=== PATIENT | male | born 1930 | race Caucasian/White ===

== ENCOUNTER 2020-04-12 07:33 | Outpatient (CLI) | payer MEDICARE ==
[2020-04-12 11:16] LABS: CREATININE,URINE 103.3 mg/dL; MICROALBUM/CREATININE RATIO,UR 9.7 ug/mg (<30.0)
[2020-04-12 13:06] LABS: BUN - BLOOD UREA NITROGEN 21 mg/dL (6-20); CALCIUM 9.1 mg/dL (8.5-10.3); CARBON DIOXIDE - CO2 26 mmol/L (21-32); CHLORIDE 104 mmol/L (101-111); CHOL/HDL RATIO 2.4 (<5.0); CHOLESTEROL 152 mg/dL; CRP - C-REACTIVE PROTEIN < 1.0 mg/dL (0-1.0); GLUCOSE 110 mg/dL (70-100); HDL CHOLESTEROL 64 mg/dL; LDL CHOLESTEROL,CALCULATED 71 mg/dL; LDL/HDL RATIO 1.1 (<3.6); SODIUM 137 mmol/L (135-145); VLDL CHOLESTEROL 17 mg/dL
[2020-04-12 13:16] LABS: HB2 TOTAL 12.5 g/dL; HEMOGLOBIN A1C 0.58 g/dL; HEMOGLOBIN A1C % 6.4 % (4.6-6.2)
== END 2020-04-12 23:59 | disposition home or self-care (01) ==
LOC: LAB.WCP 07:33
PROVIDERS: ATTEND Family Medicine
DX: E11.9 Type 2 diabetes mellitus without complications (principal); E78.5 Hyperlipidemia, unspecified; M53.3 Sacrococcygeal disorders, not elsewhere classified
CPT/HCPCS: 36415; 80048; 80061; 82043; 82570; 83036; 83721; 85651; 86140

== ENCOUNTER 2020-04-14 12:06 | Outpatient (CLI) | payer MEDICARE ==
--- NOTE | 2020-04-15 06:54 | XRAY Report ---
Reason: BACK PAIN WITH RADICULOPATHY Procedure Date: 04/14/2020 Accession Number: [id number] / [id number] Procedure: WCP - Lumbar Spine Complete CPT Code: Final Report FULL RESULT: EXAM: LUMBOSACRAL SPINE RADIOGRAPHY EXAM DATE: 04/14/2020 01:09 PM. CLINICAL HISTORY: BACK PAIN WITH RADICULOPATHY. COMPARISONS: None. TECHNIQUE: AP, lateral, bilateral oblique views. FINDINGS: Alignment: There is mild right convexity lumbar scoliosis. There is a grade 1 ( approximately 20%) anterolisthesis at L5-S1. Alignment is otherwise maintained. Bones: Five [id number]-[id number] lumbar vertebral bodies are presumed. The first sacral segment is transitional in appearance demonstrating a prominent left-sided transverse process which forms a pseudoarthrosis with the left sacral ala. This transitional segment is designated S1 for counting purposes. Visualized osseous structures are osteopenic suggesting underlying osteoporosis. No fractures or bone lesions are identified. Disks: There is aoag-uq-iibpxute disk narrowing at all lumbar levels. This is most pronounced at L5-S1. Facets: There is multilevel bilateral facet hypertrophy. This is most prominent at L4-L5 and L5-S1. Sacroiliac Joints: Unremarkable. Soft Tissues: Bowel gas pattern is unremarkable. Atherosclerotic calcification is noted in the abdominal aorta. Tip of cardiac pacemaker device is partially visualized. IMPRESSION: 1. 5 nonrib-bearing lumbar type are assumed. The first sacral segment is transitional in appearance appearing partially lumbarized. 2. There is no obvious osseous acute abnormality. No evidence of lumbar spine fracture or acute subluxation. 3. Generalized osteopenia suggesting osteoporosis. 4. Moderate multilevel degenerative change. 5. Grade 1 degenerative anterolisthesis is present at L5-S1. 6. Mild right convexity lumbar scoliosis. RADIA
== END 2020-04-14 23:59 | disposition home or self-care (01) ==
LOC: DI.WCP 12:06
PROVIDERS: ATTEND Family Medicine
DX: M47.816 Spondylosis without myelopathy or radiculopathy, lumbar region (principal); M47.817 Spondylosis without myelopathy or radiculopathy, lumbosacral region; M43.17 Spondylolisthesis, lumbosacral region; M51.36 Other intervertebral disc degeneration, lumbar region; M51.37 Other intervertebral disc degeneration, lumbosacral region; M41.9 Scoliosis, unspecified; M85.88 Other specified disorders of bone density and structure, other site
CPT/HCPCS: 72110

== ENCOUNTER 2020-05-17 09:45 | Outpatient (CLI) | payer MEDICARE, OTHER ==
--- NOTE | 2020-05-17 14:50 | DEXA Report ---
Reason: OSTEOPOROSIS Procedure Date: 05/17/2020 Accession Number: [id number] / [id number] Procedure: DEX - Dexa Spine and/or Hip CPT Code: Final Report FULL RESULT: PROCEDURE: Dexa Spine and/or Hip INDICATIONS: OSTEOPOROSIS TECHNIQUE: Dual energy x-ray absorptiometry (DXA) was performed on a [email or web address] System. Regions measured are the AP Spine, femoral neck, and if needed forearm. COMPARISON: None. FINDINGS: Lumbar Spine: Bone Mineral Density 1.390 g/cm/cm,T score 1.4, Left Femoral Neck: Bone Mineral Density 1.011 g/cm/cm, T score -0.6, (T score greater or equal to -1.0: NORMAL) (T score from -1.1 to -2.4: OSTEOPENIA) (T score less than or equal to -2.5 to: OSTEOPOROSIS) Impression: Normal Patients with diagnosis of osteoporosis or osteopenia should have regular bone mineral density assessment. For those eligible for Medicare, routine testing is allowed once every 2 years. Testing frequency can be increased for patients who have rapidly progressing disease or for those who are receiving medical therapy to restore bone mass. Reviewed by: Alec Willingham MD on 05/17/2020 2:49 PM PDT Approved by: Alec Willingham MD on 05/17/2020 2:49 PM PDT Station ID: [id number]
== END 2020-05-17 09:46 | disposition home or self-care (01) ==
LOC: DI 09:45
PROVIDERS: ATTEND Family Medicine
DX: M81.0 Age-related osteoporosis without current pathological fracture (principal)
CPT/HCPCS: 77080

== ENCOUNTER 2020-09-01 07:05 | Outpatient (CLI) | payer BC, MEDICARE, OTHER ==
[2020-09-01 11:49] LABS: BASOPHILS % (AUTO) 0.8 %; EOSINOPHILS # (AUTO) 0.2 10^3/uL (0.0-0.7); EOSINOPHILS % (AUTO) 2.9 %; HGB - HEMOGLOBIN 11.9 g/dL (14.0-18.0); LYMPHOCYTES # (AUTO) 1.1 10^3/uL (1.5-3.5); LYMPHOCYTES % (AUTO) 21.9 %; MEAN CORPUSCULAR HEMOGLOBIN 29.5 pg (27.0-31.0); MEAN CORPUSCULAR HGB CONC 32.2 g/dL (32.0-36.0); MEAN CORPUSCULAR VOLUME 91.8 fL (80.0-94.0); MONOCYTES # (AUTO) 0.4 10^3/uL (0.0-1.0); MONOCYTES % (AUTO) 8.1 %; NEUTROPHILS # (AUTO) 3.4 10^3/uL (1.5-6.6); NEUTROPHILS % (AUTO) 65.7 %; PLT - PLATELET COUNT 240 10^3/uL (130-450); RED BLOOD COUNT 4.03 10^6/uL (4.70-6.10); RED CELL DISTRIBUTION WIDTH 13.2 % (12.0-15.0); WHITE BLOOD COUNT 5.2 x10^3/uL (4.8-10.8)
[2020-09-01 11:50] LABS: ALBUMIN 4.1 g/dL (3.2-5.5); ALBUMIN/GLOBULIN RATIO 1.4 (1.0-2.2); BILIRUBIN,TOTAL 0.9 mg/dL (0.2-1.0); CALCIUM 9.2 mg/dL (8.5-10.3); TOTAL PROTEIN 7.1 g/dL (6.7-8.2)
[2020-09-01 12:11] LABS: HEMOGLOBIN A1c% 6.5 % (4.27-6.07)
[2020-09-01 12:31] LABS: CREATININE,URINE 71.1 mg/dL; MICROALBUM/CREATININE RATIO,UR 8.4 ug/mg (<30.0); MICROALBUMIN,URINE 0.6 mg/dL (0-300.0)
== END 2020-09-01 23:59 | disposition home or self-care (01) ==
LOC: LAB.WCP 07:05
PROVIDERS: ATTEND Family Medicine
DX: I10 Essential (primary) hypertension (principal); E11.9 Type 2 diabetes mellitus without complications; E78.5 Hyperlipidemia, unspecified
CPT/HCPCS: 36415; 80053; 82043; 82570; 83036; 84443; 85025

== ENCOUNTER 2020-09-05 12:55 | Outpatient (CLI) | payer BC, MEDICARE, OTHER ==
[2020-09-05 18:09] LABS: ABSOLUTE RETICS # AUTO 0.049 10^6/uL (0.020-0.110); BASOPHILS % (AUTO) 0.6 %; EOSINOPHILS # (AUTO) 0.1 10^3/uL (0.0-0.7); EOSINOPHILS % (AUTO) 1.9 %; HGB - HEMOGLOBIN 11.7 g/dL (14.0-18.0); LYMPHOCYTES # (AUTO) 0.9 10^3/uL (1.5-3.5); LYMPHOCYTES % (AUTO) 17.3 %; MEAN CORPUSCULAR HEMOGLOBIN 29.3 pg (27.0-31.0); MEAN CORPUSCULAR HGB CONC 31.6 g/dL (32.0-36.0); MEAN CORPUSCULAR VOLUME 92.5 fL (80.0-94.0); MEAN PLATELET VOLUME 9.3 fL (7.4-11.4); MONOCYTES # (AUTO) 0.5 10^3/uL (0.0-1.0); MONOCYTES % (AUTO) 9.2 %; NEUTROPHILS # (AUTO) 3.8 10^3/uL (1.5-6.6); NEUTROPHILS % (AUTO) 70.6 %; PLT - PLATELET COUNT 252 10^3/uL (130-450); RED CELL DISTRIBUTION WIDTH 13.3 % (12.0-15.0); WHITE BLOOD COUNT 5.3 x10^3/uL (4.8-10.8)
[2020-09-05 18:48] LABS: % IRON SATURATION 15 % (20-50); IRON 61 ug/dL (45-182); TOTAL IRON BINDING CAPACITY 405 ug/dL (250-450); TRANSFERRIN 289 mg/dL (180-329)
[2020-09-05 18:50] LABS: FERRITIN 20.7 ng/mL (23.9-336.2)
[2020-09-05 18:53] LABS: FOLATE 9.05 ng/mL (5.90 - >24.8)
== END 2020-09-05 23:59 | disposition home or self-care (01) ==
LOC: LAB.WCP 12:55
PROVIDERS: ATTEND Family Medicine
DX: D64.9 Anemia, unspecified (principal)
CPT/HCPCS: 36415; 82607; 82728; 82746; 83540; 84466; 85025; 85045

== ENCOUNTER 2020-09-10 08:00 | Outpatient (CLI) | payer BC, MEDICARE, OTHER | END 2020-09-10 23:59 | LOC: LAB.R 08:00 | PROVIDERS: ATTEND Family Medicine | DX: D64.9 Anemia, unspecified (principal) | CPT/HCPCS: 82274 ==

== ENCOUNTER 2020-12-16 08:40 | Outpatient (CLI) | payer OTHER ==
[2020-12-16 09:14] LABS: ABSOLUTE RETICS # AUTO 0.045 10^6/uL (0.020-0.110); BASOPHILS # (AUTO) 0.1 10^3/uL (0.0-0.1); BASOPHILS % (AUTO) 0.9 %; EOSINOPHILS # (AUTO) 0.1 10^3/uL (0.0-0.7); EOSINOPHILS % (AUTO) 1.8 %; HGB - HEMOGLOBIN 12.2 g/dL (14.0-18.0); LYMPHOCYTES % (AUTO) 18.5 %; MEAN CORPUSCULAR HEMOGLOBIN 28.6 pg (27.0-31.0); MEAN CORPUSCULAR HGB CONC 31.9 g/dL (32.0-36.0); MEAN CORPUSCULAR VOLUME 89.7 fL (80.0-94.0); MEAN PLATELET VOLUME 8.6 fL (7.4-11.4); MONOCYTES # (AUTO) 0.6 10^3/uL (0.0-1.0); MONOCYTES % (AUTO) 10.3 %; NEUTROPHILS # (AUTO) 3.8 10^3/uL (1.5-6.6); NEUTROPHILS % (AUTO) 68.3 %; PLT - PLATELET COUNT 240 10^3/uL (130-450); RED BLOOD COUNT 4.27 10^6/uL (4.70-6.10); RED CELL DISTRIBUTION WIDTH 13.3 % (12.0-15.0); WHITE BLOOD COUNT 5.5 x10^3/uL (4.8-10.8)
[2020-12-16 09:27] LABS: CREATININE,URINE 163.3 mg/dL; MICROALBUM/CREATININE RATIO,UR 15.3 ug/mg (<30.0); MICROALBUMIN,URINE 2.5 mg/dL (0-300.0)
[2020-12-16 09:32] LABS: % IRON SATURATION 16 % (20-50); ALBUMIN 4.4 g/dL (3.2-5.5); ALBUMIN/GLOBULIN RATIO 1.4 (1.0-2.2); ALKALINE PHOSPHATASE 60 IU/L (42-121); ALT ALANINE AMINOTRANSFERASE 15 IU/L (10-60); AST ASPARTATE AMINOTRANSFERASE 36 IU/L (10-42); BILIRUBIN,TOTAL 0.7 mg/dL (0.2-1.0); BUN - BLOOD UREA NITROGEN 22 mg/dL (6-20); CALCIUM 9.3 mg/dL (8.5-10.3); CARBON DIOXIDE - CO2 25 mmol/L (21-32); CHLORIDE 101 mmol/L (101-111); CHOL/HDL RATIO 2.2 (<5.0); CHOLESTEROL 161 mg/dL; GLUCOSE 158 mg/dL (70-100); HDL CHOLESTEROL 72 mg/dL; IRON 65 ug/dL (45-182); LDL CHOLESTEROL,CALCULATED 74 mg/dL; SODIUM 136 mmol/L (135-145); TOTAL IRON BINDING CAPACITY 403 ug/dL (250-450); TOTAL PROTEIN 7.6 g/dL (6.7-8.2); TRANSFERRIN 288 mg/dL (180-329); VLDL CHOLESTEROL 15 mg/dL
[2020-12-16 09:43] LABS: CRP - C-REACTIVE PROTEIN < 1.0 mg/dL (0-1.0)
[2020-12-16 09:50] LABS: FERRITIN 23.5 ng/mL (23.9-336.2)
[2020-12-16 11:49] LABS: HEMOGLOBIN A1c% 6.6 % (4.27-6.07)
== END 2020-12-16 08:41 | disposition home or self-care (01) ==
LOC: LAB 08:40
PROVIDERS: ATTEND Internal Medicine
DX: D64.9 Anemia, unspecified (principal); E11.9 Type 2 diabetes mellitus without complications; M35.3 Polymyalgia rheumatica
CPT/HCPCS: 36415; 80053; 80061; 82043; 82570; 82728; 83036; 83540; 83721; 84443; 84466; 85025; 85045; 85651; 86140

== ENCOUNTER 2021-01-18 08:00 | Outpatient (CLI) | payer MEDICARE, OTHER ==
[2021-01-18 18:50] LABS: ABSOLUTE RETICS # AUTO 0.055 10^6/uL (0.020-0.110); BASOPHILS % (AUTO) 0.5 %; EOSINOPHILS # (AUTO) 0.1 10^3/uL (0.0-0.7); EOSINOPHILS % (AUTO) 1.9 %; HGB - HEMOGLOBIN 12.1 g/dL (14.0-18.0); LYMPHOCYTES % (AUTO) 16.2 %; MEAN CORPUSCULAR HEMOGLOBIN 28.5 pg (27.0-31.0); MEAN CORPUSCULAR HGB CONC 31.8 g/dL (32.0-36.0); MEAN CORPUSCULAR VOLUME 89.9 fL (80.0-94.0); MEAN PLATELET VOLUME 9.1 fL (7.4-11.4); MONOCYTES # (AUTO) 0.5 10^3/uL (0.0-1.0); MONOCYTES % (AUTO) 8.2 %; NEUTROPHILS # (AUTO) 4.5 10^3/uL (1.5-6.6); NEUTROPHILS % (AUTO) 72.7 %; PLT - PLATELET COUNT 316 10^3/uL (130-450); RED BLOOD COUNT 4.24 10^6/uL (4.70-6.10); RED CELL DISTRIBUTION WIDTH 13.2 % (12.0-15.0); WHITE BLOOD COUNT 6.2 x10^3/uL (4.8-10.8)
[2021-01-18 19:22] LABS: % IRON SATURATION 16 % (20-50); ALBUMIN 4.1 g/dL (3.2-5.5); ALBUMIN/GLOBULIN RATIO 1.3 (1.0-2.2); ALKALINE PHOSPHATASE 64 IU/L (42-121); ALT ALANINE AMINOTRANSFERASE 14 IU/L (10-60); AST ASPARTATE AMINOTRANSFERASE 32 IU/L (10-42); BILIRUBIN,TOTAL 0.9 mg/dL (0.2-1.0); BUN - BLOOD UREA NITROGEN 20 mg/dL (6-20); CALCIUM 9.6 mg/dL (8.5-10.3); CARBON DIOXIDE - CO2 26 mmol/L (21-32); CHLORIDE 100 mmol/L (101-111); CHOL/HDL RATIO 2.2 (<5.0); CHOLESTEROL 165 mg/dL; GLUCOSE 151 mg/dL (70-100); HDL CHOLESTEROL 76 mg/dL; IRON 69 ug/dL (45-182); LDL CHOLESTEROL,CALCULATED 74 mg/dL; TOTAL IRON BINDING CAPACITY 419 ug/dL (250-450); TOTAL PROTEIN 7.3 g/dL (6.7-8.2); TRANSFERRIN 299 mg/dL (180-329); VLDL CHOLESTEROL 15 mg/dL
[2021-01-18 19:26] LABS: CREATININE,URINE 103.2 mg/dL; MICROALBUMIN,URINE 3.2 mg/dL (0-300.0)
[2021-01-18 19:32] LABS: FERRITIN 17.8 ng/mL (23.9-336.2)
[2021-01-18 21:02] LABS: HEMOGLOBIN A1c% 6.6 % (4.27-6.07)
== END 2021-01-18 23:59 | disposition home or self-care (01) ==
LOC: LAB.WCP 08:00
PROVIDERS: ATTEND Internal Medicine
DX: E11.9 Type 2 diabetes mellitus without complications (principal); D50.8 Other iron deficiency anemias; Z87.39 Personal history of other diseases of the musculoskeletal system and connective tissue
CPT/HCPCS: 36415; 80053; 80061; 82043; 82570; 82728; 83036; 83540; 83721; 84443; 84466; 85025; 85045; 85651; 86140

== ENCOUNTER 2021-03-09 08:34 | Outpatient (CLI) | payer MEDICARE, OTHER ==
[2021-03-09 11:49] LABS: BASOPHILS % (AUTO) 0.5 %; EOSINOPHILS # (AUTO) 0.1 10^3/uL (0.0-0.7); EOSINOPHILS % (AUTO) 1.2 %; HCT - HEMATOCRIT 38.1 % (42.0-52.0); HGB - HEMOGLOBIN 11.5 g/dL (14.0-18.0); LYMPHOCYTES # (AUTO) 1.4 10^3/uL (1.5-3.5); MEAN CORPUSCULAR HEMOGLOBIN 27.6 pg (27.0-31.0); MEAN CORPUSCULAR HGB CONC 30.2 g/dL (32.0-36.0); MEAN CORPUSCULAR VOLUME 91.4 fL (80.0-94.0); MEAN PLATELET VOLUME 9.2 fL (7.4-11.4); MONOCYTES # (AUTO) 0.5 10^3/uL (0.0-1.0); MONOCYTES % (AUTO) 7.9 %; NEUTROPHILS # (AUTO) 4.4 10^3/uL (1.5-6.6); NEUTROPHILS % (AUTO) 67.8 %; PLT - PLATELET COUNT 284 10^3/uL (130-450); RED BLOOD COUNT 4.17 10^6/uL (4.70-6.10); RED CELL DISTRIBUTION WIDTH 13.6 % (12.0-15.0); WHITE BLOOD COUNT 6.4 x10^3/uL (4.8-10.8)
== END 2021-03-09 23:59 | disposition home or self-care (01) ==
LOC: LAB.WCP 08:34
PROVIDERS: ATTEND Internal Medicine
DX: Z87.39 Personal history of other diseases of the musculoskeletal system and connective tissue (principal)
CPT/HCPCS: 36415; 85025; 85651; 86140

== ENCOUNTER 2021-05-11 07:45 | Outpatient (CLI) | payer MEDICARE, OTHER ==
[2021-05-11 11:53] LABS: ABSOLUTE RETICS # AUTO 0.058 10^6/uL (0.020-0.110); BASOPHILS % (AUTO) 0.7 %; EOSINOPHILS # (AUTO) 0.1 10^3/uL (0.0-0.7); EOSINOPHILS % (AUTO) 2.3 %; HCT - HEMATOCRIT 38.2 % (42.0-52.0); HGB - HEMOGLOBIN 11.8 g/dL (14.0-18.0); LYMPHOCYTES % (AUTO) 17.4 %; MEAN CORPUSCULAR HEMOGLOBIN 28.4 pg (27.0-31.0); MEAN CORPUSCULAR HGB CONC 30.9 g/dL (32.0-36.0); MEAN CORPUSCULAR VOLUME 91.8 fL (80.0-94.0); MEAN PLATELET VOLUME 9.4 fL (7.4-11.4); MONOCYTES # (AUTO) 0.6 10^3/uL (0.0-1.0); MONOCYTES % (AUTO) 9.2 %; NEUTROPHILS # (AUTO) 4.2 10^3/uL (1.5-6.6); NEUTROPHILS % (AUTO) 69.9 %; PLT - PLATELET COUNT 260 10^3/uL (130-450); RED BLOOD COUNT 4.16 10^6/uL (4.70-6.10); RED CELL DISTRIBUTION WIDTH 13.2 % (12.0-15.0); RETICULOCYTE COUNT % (AUTO) 1.39 % (0.5-2.3)
[2021-05-11 12:17] LABS: ESTIMATED AVERAGE GLUCOSE 166 mg/dL (70-100); HEMOGLOBIN A1c% 7.4 % (4.27-6.07)
[2021-05-11 12:24] LABS: CALCIUM 9.4 mg/dL (8.5-10.3); CREATININE 0.9 mg/dL (0.6-1.2); POTASSIUM 4.2 mmol/L (3.5-5.0)
[2021-05-11 12:33] LABS: CREATININE,URINE 121.6 mg/dL; MICROALBUM/CREATININE RATIO,UR 12.3 ug/mg (<30.0); MICROALBUMIN,URINE 1.5 mg/dL (0-300.0)
== END 2021-05-11 23:59 | disposition home or self-care (01) ==
LOC: LAB.WCP 07:45
PROVIDERS: ATTEND Internal Medicine
DX: E11.9 Type 2 diabetes mellitus without complications (principal); D50.8 Other iron deficiency anemias
CPT/HCPCS: 36415; 80048; 82043; 82570; 82728; 83036; 83540; 84466; 85025; 85045

== ENCOUNTER 2021-05-22 08:00 | Outpatient (CLI) | payer MEDICARE, OTHER ==
[2021-05-22 21:29] LABS: FECAL OCCULT BLOOD (FIT) NEGATIVE (NEGATIVE)
== END 2021-05-22 23:59 | disposition home or self-care (01) ==
LOC: LAB.R 08:00
PROVIDERS: ATTEND Internal Medicine
DX: D50.8 Other iron deficiency anemias (principal)
CPT/HCPCS: 82274

== ENCOUNTER 2021-08-09 08:00 | Outpatient (CLI) | payer MEDICARE, OTHER ==
[2021-08-09 12:12] LABS: BASOPHILS % (AUTO) 0.7 %; EOSINOPHILS # (AUTO) 0.1 10^3/uL (0.0-0.7); EOSINOPHILS % (AUTO) 1.7 %; HCT - HEMATOCRIT 37.6 % (42.0-52.0); HGB - HEMOGLOBIN 11.7 g/dL (14.0-18.0); MEAN CORPUSCULAR HEMOGLOBIN 28.3 pg (27.0-31.0); MEAN CORPUSCULAR HGB CONC 31.1 g/dL (32.0-36.0); MEAN CORPUSCULAR VOLUME 90.8 fL (80.0-94.0); MEAN PLATELET VOLUME 9.3 fL (7.4-11.4); MONOCYTES # (AUTO) 0.5 10^3/uL (0.0-1.0); MONOCYTES % (AUTO) 9.4 %; PLT - PLATELET COUNT 247 10^3/uL (130-450); RED BLOOD COUNT 4.14 10^6/uL (4.70-6.10); RED CELL DISTRIBUTION WIDTH 13.1 % (12.0-15.0); WHITE BLOOD COUNT 5.8 x10^3/uL (4.8-10.8)
[2021-08-09 12:48] LABS: CALCIUM 9.5 mg/dL (8.5-10.3); CREATININE 1.1 mg/dL (0.6-1.2); POTASSIUM 4.3 mmol/L (3.5-5.0)
[2021-08-09 13:08] LABS: ESTIMATED AVERAGE GLUCOSE 146 mg/dL (70-100); HEMOGLOBIN A1c% 6.7 % (4.27-6.07)
== END 2021-08-09 23:59 | disposition home or self-care (01) ==
LOC: LAB.WCP 08:00
PROVIDERS: ATTEND Internal Medicine
DX: E11.9 Type 2 diabetes mellitus without complications (principal); Z87.39 Personal history of other diseases of the musculoskeletal system and connective tissue
CPT/HCPCS: 36415; 80048; 83036; 85025; 85651; 86200